=== PATIENT | male | born 1950 | race Caucasian/White ===

== ENCOUNTER → 2021-08-15 15:39 | Outpatient (CLI) | payer MEDICARE, SELFPAY ==
--- NOTE | 2021-08-15 | DI.MRI.S_ITS ---
PROCEDURE: MR ANKLE RT WO CON INDICATIONS: TEAR OF PERONEAL TENDON, RIGHT TECHNIQUE: Noncontrast sagittal T1 spin echo and T2 fast spin echo with fat saturation, axial proton density fast spin echo and T2 fast spin echo with fat saturation, coronal T1 spin echo and T2 fast spin echo with fat saturation through the ankle/hindfoot. COMPARISON: [facility] [place], [place], XR ANKLE 3 VIEWS WEIGHT BEARING RIGHT, 08/05/2021, 11:59. FINDINGS: Image quality: Excellent. Bones and joints: There is anterior and lateral ankle soft tissue swelling and edema. Mild midfoot and hindfoot joint osteoarthritic changes are seen with joint space narrowing and subchondral sclerosis. No bone marrow contusions or fractures. No hindfoot coalitions. No osteochondral injuries of the talar dome. Moderate tibiotalar joint effusion is seen, no gross loose bodies. Medial structures: The posterior tibialis, flexor digitorum longus, and flexor hallucis longus tendons are intact. The posterior tibial neurovascular bundle appears normal within the tarsal tunnel, without extrinsic mass effect. The deep layer (anterior and posterior tibiotalar ligaments) and superficial layer (tibionavicular, tibiospring, and tibiocalcaneal ligaments) of the deltoid ligament appear normal. The spring ligament components (superomedial calcaneonavicular, medioplantar oblique calcaneonavicular, and inferoplantar longitudinal ligaments) are intact. Lateral structures: There is suggestion of ruptured anterior talofibular ligament. The calcaneofibular, and posterior talofibular ligaments appear attenuated with intrasubstance T2 hyperintense signal. More superiorly, the anterior and posterior tibiofibular ligaments appear intact, as is the intermalleolar ligament. The tibiofibular syndesmosis is normal in width at 2 mm or less. There is rupture of peroneus longus and brevis tendons at the level of mid to distal calcaneus with approximately 4.4 cm proximal retraction of torn tendon fibers to the level of distal fibular shaft/lateral malleolus with moderate amount of surrounding fluid and edema. Adjacent bony peroneal tubercle and retrotrochlear prominence are normal in size. The sinus tarsi demonstrates normal fatty signal, without edema, fibrosis, or cyst formation. Visualized sinus tarsi components (cervical ligament, interosseous talocalcaneal ligament, roots of the inferior extensor retinaculum) appear normal. The calcaneonavicular and calcaneocuboid components of the bifurcate ligament appear intact. The dorsal calcaneocuboid ligament appears intact. Anterior structures: The tibialis anterior, extensor hallucis longus, and extensor digitorum longus tendons appear intact. The dorsal talonavicular ligament appears intact. Posterior and plantar structures: Achilles tendon is intact. Medial and lateral bands of the plantar fascia are of normal thickness. No abductor digiti quinti muscle atrophy to suggest Solano neuropathy. IMPRESSION: 1. Full-thickness rupture of peroneus tendons at the level of mid to distal calcaneus with up to 4.4 cm proximal retraction of torn tendon fibers and moderate amount of surrounding fluid and edema. 2. Ruptured anterior talofibular ligament. Sprain/low to moderate grade partial-thickness tear involving posterior talofibular ligament and calcaneofibular ligament. 3. [id number]-[id number] midfoot and hindfoot joint osteoarthritis. Moderate amount of tibiotalar joint effusion, no gross loose bodies. No fracture or dislocation. Dictated by: Valeriano Carson M.D. on 08/15/2021 at 22:47 Approved by: Valeriano Carson M.D. on 08/15/2021 at 23:00
== END ==
PROVIDERS: PCP Internal Medicine; Referring Provider Orthopaedic Surgery Foot and Ankle Surgery; Visit Provider Orthopaedic Surgery Foot and Ankle Surgery
DX: S93.492A Sprain of other ligament of left ankle, initial encounter (principal); S86.311A Strain of muscle(s) and tendon(s) of peroneal muscle group at lower leg level, right leg, initial encounter; S93.411A Sprain of calcaneofibular ligament of right ankle, initial encounter; M19.071 Primary osteoarthritis, right ankle and foot; M25.474 Effusion, right foot; X58.XXXA Exposure to other specified factors, initial encounter
CPT/HCPCS: 73721

== ENCOUNTER 2021-10-08 09:05 | Day surgery (SDC) | payer MEDICARE, OTHER, SELFPAY ==
[2021-10-05 14:48] VITALS: BMI 25.9
[2021-10-08 09:29] VITALS: BP 126/77; PULSE 53; RESP 16; TEMP 36.8; O2SAT 99; BMI 25.9
[2021-10-08] MEDS: LACTATED RINGERS 1,000 ML 42 ML IV ×2 (09:38→12:47)
--- NOTE | 2021-10-08 10:33 | PM.PREOP ---
Pre-operative Note COVID-19 COVID-19 status: Negative Interval Note History & Physical reviewed/Exam performed by Physician: Yes Changes to H&P: No
--- NOTE | 2021-10-08 11:32 | SUR.PREOP ---
Block start time [1055] . Monitoring initiated and maintained throughout procedure. Oxygen and medications given per anesthesiologist. Patient remained stable throughout procedure, no adverse reactions noted. Block end time [1107 ].
--- NOTE | 2021-10-08 11:52 | SUR.OPER ---
Partial Left Lateral on a ramirez bag, head on pillow, bottom leg bent with gel pad under knee to foot, upper leg in control of the Surgeon. Folded blankets for bump and taped in place. Upper arm supported by pillows and secured over bottom arm to padded arm board. Gel pad placed under bilateral arms for support. Safety belt at hip, tape over blanket left lower leg.
[2021-10-08] MEDS: BUPIVACAINE 0.25% (PF) VIAL 30 ML INJ (13:30)
[2021-10-08] MEDS: EPINEPHrine 1 MG/ML 0.15 MG INJ (13:31)
[2021-10-08 14:10] VITALS: BP 106/70; PULSE 64; RESP 14; TEMP 36; O2SAT 98
[2021-10-08 14:17] VITALS: BP 101/65; PULSE 51; RESP 16; TEMP 36.2; O2SAT 99
--- NOTE | 2021-10-08 14:28 | P.OP_ITS ---
Operative Date/Time/Diagnoses Date of procedure: 10/08/21 Time of procedure: 12:30 Pre-op diagnosis: Rupture peroneal tendon right foot S86.311A Ankle sprain severe sequelae S39.409S Post-op diagnosis: other (Calcaneal fibular ligament incompetence) Procedure & Clinicians Procedure: Reconstruction peroneal tendon right with allograft CPT code 02294, right Repair collateral ligament ankle, calcaneal fibular ligament right [id number] Same procedure as scheduled: Yes Indications: The patient is 71-year-old male with a history of right ankle pain along the lateral ankle that occurred 3 months ago history of a previous ankle surgery. The pain is not improved with extensive conservative treatment and states that intolerable and LEs he was very size 30 hiking boots. Had an MRI that demonstrated rupture of peroneus longus and brevis tendons. It is a posterior lateral scar consistent with previous peroneal tendon surgery but now new ruptur e with approximately 4 cm gap. He has been indicated for peroneal tendon repair with interposition allograft versus is flexor tendon transfer if the muscle quality is not adequate. The risks benefits and alternatives of procedure were discussed with the patient in detail including but not limited to infection, persistent pain, wound healing problems, damage to nerves and blood vessels, bleeding, deep venous thrombosis, pulmonary embolism, stroke, paralysis and . The patient has elected to proceed with surgery. Consent was signed in the office. Surgeon: Yolie Lemos Click Yes if Unassisted: Yes Anesthesia Type: General, Peripheral nerve block and Local Operative Notes Findings: Extensive scarring along the peroneal tendons and sheath. Previous posterolateral scar was reopened. There is evidence of previous peroneus longus to brevis tenodesis. But there is a rupture at the level of the superficial peroneal retinaculum. There was a approximately 2 cm stump at the 5th metatarsal base of the peroneus brevis. Proximally the muscle did contract. There was arborization of sural nerve was carefully protected. Deep in the wound the CFL ligament was evaluated this is an incompetent and loose with subtalar tilt. This was reconstructed and retensioned to protect the peroneal tendon repair Closure Type: primary Specimen(s): none sent Prosthetic devices, grafts, tissues, transplants, or devices: Semi tendinous allograft was utilized for peroneal tendon repair 3.0 SutureTak Arthrex Estimated Blood Loss (mL): 100 Blood products transfused: none Tourniquet time (min): 77 Procedure in detail: Patient was seen in the preoperative area the site of surgery marked informed consent confirmed. He has were back to the operating room by the anesthesia team and a peripheral nerve block was placed for postoperative pain control. He was then brought to the operating room and positioned supine on operative table on a beanbag. General anesthetic was administered and the patient was positioned in the sloppy lateral position. All bony prominences well padded. Well-padded thigh tourniquet was placed. The lower extremity wasprepped and draped in the standard sterile fashion. A formal time-out procedure was performed confirming the patient's side and site of surgery administration of appropriate preoperative antibiotics all were in agreement. The Esmarch was used for exsanguination the tourniquet raised on the thigh to 250 mmHg attention was turned to the lateral ankle. The incision posterior lateral along the border of the fibula down to the 5th metatarsal base was taken down through the skin and subcutaneous tissue. Scar was encountered. Peroneal tendon sheath proximally was identified and opened. The ruptured proximal stump was identified. There was only 1 identifiable tendon indicating previous tenodesis distally the superficial peroneal retinaculum was carefully opened to of the of the tendon adhesions at this level of the rupture. And then distally this was followed to the 5th metatarsal base without approximately 2 cm brevis tendon. The sural nerve was are arborized with branches dorsal and plantar to the 5th metatarsal base and was carefully mobilized and protected. Extensive debridement of the peroneal tendon sheath and tract was completed. The CFL was inspected and was grossly loose and incompetent there was opening with inversion of the subtalar joint. Therefore a 2-0 FiberWire suture was utilized to repair the CFL ligament through bone tunnels in the distal fibula restoring the inversion eversion stability. This was tied in neutral dorsiflexion and tracey ion. Attention was turned to the 5th metatarsal base and under C-arm guidance a 3-0 SutureTak anchor was placed in the base of the 5th metatarsal there was a large gap and therefore the allograft tendon was thawed. This was secured distally to the suture anchor and then placed through the peroneus brevis stump in a Pulvertaft weave and secured with FiberWire suture. This was then run over the CFL through the peroneal tendon and groove and to the proximal peroneal tendon stump. Again this was taken through the stump proximally in a Pulvertaft weave and then sewn back over itself. The tension at which the proximal tendon was secured was approximately half of the muscle excursion and this was secured in neutral dorsiflexion neutral inversion eversion. This was secured with FiberWire suture. Next the superficial peroneal retinaculum was repaired with 2. FiberWire. The ankle was taken through range of motion and the peroneal tendon allograft had a smooth excursion. At the tourniquet was released. Hemostasis was achieved. Deep tissue and peroneal tendon sheath wears closed with 2-0 Vicryl suture 4-0 Monocryl was used in subcutaneous tissue followed by 3-0 nylon suture. Additional 20 cc of local anesthetic was infiltrated for postoperative pain control. A well-padded U splint was placed and the drapes removed the patient was woken from anesthesia and taken to recovery room in good condition. There no immediate complications from this procedure. All counts were correct Complications: none Post-operative Condition: stable Disposition: PACU Plan for aftercare: Nonweightbearing right lower extremity in the splint. Elevate above the heart level. The use aspirin for DVT prophylaxis. follow-up in 2 weeks for transition to a boot with no inversion or eversion for 6 weeks. He will be able to start progressive weight-bearing in the boot at 2 weeks and progress to a stirrup or ASO brace at 6 weeks no resisted inversion eversion strengthening until 12 weeks.
[2021-10-08 14:33] VITALS: BP 108/69; PULSE 54; RESP 16; TEMP 36.2; O2SAT 98
[2021-10-08] MEDS: OXYCODONE IR 5 MG TABLET PO (14:58)
[2021-10-08 15:15] VITALS: PULSE 56; RESP 16; O2SAT 99
== END 2021-10-08 15:20 | disposition home or self-care (01) ==
PROVIDERS: PCP Internal Medicine; Referring Provider Orthopaedic Surgery Foot and Ankle Surgery; Visit Provider Orthopaedic Surgery Foot and Ankle Surgery
PROC: (CPT 24341; principal; 2021-10-08 10:45)
DX: S86.311A Strain of muscle(s) and tendon(s) of peroneal muscle group at lower leg level, right leg, initial encounter (principal); S93.491A Sprain of other ligament of right ankle, initial encounter; M19.071 Primary osteoarthritis, right ankle and foot; W01.0XXA Fall on same level from slipping, tripping and stumbling without subsequent striking against object, initial encounter; J45.909 Unspecified asthma, uncomplicated
CPT/HCPCS: 27698; 27675; 01470; 64450; C9803; J0171; J1170; J2405; J2704; J2795; J3010; J3490